=== PATIENT | female | born 1935 | race Caucasian/White ===

== ENCOUNTER → 2016-04-18 | Outpatient (CLI) | payer BC ==
--- NOTE | 2016-04-18 10:23 | DI ---
AP PELVIS and RIGHT HIP, 04/18/2016 9:36 AM: Clinical History: Right hip pain. Previous Exam: 11/26/2015. There is no soft tissue abnormality. 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 There is sclerosis of the inferior portion of the left sacral wing suggestin g a healed fracture. 2 AP views of the right hip show over coverage of the superior and lateral aspec t of the acetabulum. There is a large osteophyte along the lateral and superior margin of the femoral head. There is almost complete obliteration of the joint space around the surface of the femoral hea d. Readin. 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 There ma y be an old fracture of the inferior aspect of the left sacral wing. 2. 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
== END ==
LOC: ORTHO 09:55
PROVIDERS: ATTEND Orthopaedic Surgery
DX: M16.11 Unilateral primary osteoarthritis, right hip (principal); S32.592K Other specified fracture of left pubis, subsequent encounter for fracture with nonunion
CPT/HCPCS: 73502

== ENCOUNTER → 2016-05-09 | Outpatient (CLI) | payer BC ==
--- NOTE | 2016-05-09 10:39 | EKG ---
[address] [address] Measurements Intervals [place] Rate: 86 P: 77 VT: 167 QRS: -1 QRSD: 90 T: 70 QT: 359 QTc: 402 Interpretive Statements SINUS RHYTHM POSSIBLE OLDINFERIOR MYOCARDIAL INFARCTION No previous ECG available for comparison Electronically Signed On 05-09-16 14:51:44 MDT by Raymundo Martin [email or web address]
[2016-05-09 10:46] LABS: HEMATOCRIT 42.1 % (37.0-47.0); HEMOGLOBIN 14.7 g/dL (12.0-16.0); MEAN CORPUSCULAR HEMOGLOBIN 32.1 PG (27-31); MEAN CORPUSCULAR HGB CONC 34.9 g/dL (33-37); MEAN CORPUSCULAR VOLUME 91.9 FL (81-99); MEAN PLATELET VOLUME 9.5 FL (7.4-12.2); RED BLOOD COUNT 4.58 10^6/uL (4.20-5.40)
[2016-05-09 10:50] LABS: BILIRUBIN,URINE NEGATIVE (NEG); COLOR,URINE YELLOW; GLUCOSE, URINE (UA) NEGATIVE (NEG); NITRATE,URINE NEGATIVE (NEG); OCCULT BLOOD,URINE NEGATIVE (NEG); PROTEIN,URINE NEGATIVE (NEG); UROBILINOGEN,URINE 0.2 mg/dL (0.2)
[2016-05-09 10:56] LABS: BACTERIA,URINE RARE; CLARITY,URINE SLIGHTLY CLOUDY (CLEAR); RBC,URINE 0 /hpf; URINE SAMPLE TYPE CLEAN CATCH URINE; WBC,URINE 0
[2016-05-09 11:14] LABS: BUN/CREATININE RATIO 38.33 (6-20); CALCIUM 9.9 mg/dL (8.7-10.7)
== END ==
LOC: LAB 09:49
PROVIDERS: ATTEND Orthopaedic Surgery
DX: Z01.812 Encounter for preprocedural laboratory examination (principal); Z01.810 Encounter for preprocedural cardiovascular examination; M16.11 Unilateral primary osteoarthritis, right hip; I10 Essential (primary) hypertension
CPT/HCPCS: 36415; 80048; 81001; 85027; 86850; 86870; 87641; 93005; 93010

== ENCOUNTER → 2016-05-23 | Outpatient (CLI) | payer BC ==
[2016-05-23 11:12] LABS: BILIRUBIN,URINE NEGATIVE (NEG); COLOR,URINE YELLOW; GLUCOSE, URINE (UA) NEGATIVE (NEG); NITRATE,URINE NEGATIVE (NEG); OCCULT BLOOD,URINE NEGATIVE (NEG); PROTEIN,URINE NEGATIVE (NEG); UROBILINOGEN,URINE 0.2 mg/dL (0.2)
[2016-05-23 11:16] LABS: CLARITY,URINE CLEAR (CLEAR)
[2016-05-23 11:17] LABS: BACTERIA,URINE RARE; RBC,URINE 0 /hpf; URINE SAMPLE TYPE CLEAN CATCH URINE; WBC,URINE 0
== END ==
LOC: LAB 10:08
PROVIDERS: ATTEND Orthopaedic Surgery
DX: M16.11 Unilateral primary osteoarthritis, right hip (principal)
CPT/HCPCS: 36415; 81001; 86850; 86870; 86900; 86901; 86902

== ENCOUNTER 2016-05-24 05:59 | Inpatient (IN) | payer OTHER, BC ==
[2016-05-24] MEDS ORDERED: ceFAZolin Inj 2gm (Premix) 50 ML IV ONE (06:02)
[2016-05-24] MEDS ORDERED: LIDOCAINE W/ SODIUM BICARB 0.5 ML SYR ONE (06:02)
[2016-05-24] MEDS ORDERED: Lactated Ringers 1,000 ML PRIMARY IV ONE (06:02)
[2016-05-24] MEDS ORDERED: Sodium Chloride 0.9% vial 40 ML ONE (06:36)
[2016-05-24] MEDS ORDERED: HEPARIN 10,000 UNIT/1 ML ONE (06:36)
[2016-05-24] MEDS ORDERED: BUPivacaine Liposome/PF (Exparel) Inj 20ml vial INFIL ONE (06:36)
[2016-05-24] MEDS ORDERED: Gentamicin Inj 40 MG/ML VIAL ONE (06:36)
[2016-05-24] MEDS ORDERED: Prochlorperazine Edisylate Inj 10mg/2ml vial IVP PRN (06:40)
[2016-05-24] MEDS ORDERED: NORMAL SALINE 10 ML SYRINGE FLUSH IVP PRN ×2 (06:40→12:50)
[2016-05-24] MEDS ORDERED: ePHEDrine Inj 50 MG/ML AMP IVP PRN (06:40)
[2016-05-24] MEDS ORDERED: ATROPINE SULFATE 0.4 MG/1 ML VIAL IVP PRN (06:40)
[2016-05-24] MEDS ORDERED: ONDANSETRON 4 MG/2 ML VIAL IVP PRN ×2 (06:40→12:50)
[2016-05-24] MEDS ORDERED: Ondansetron ODT Tab 8 MG TAB PO PRN ×2 (06:40→12:50)
[2016-05-24] MEDS ORDERED: Lactated Ringers 1,000 ML PRIMARY IV SCH (06:45)
[2016-05-24] MEDS ORDERED: Sodium Chloride 0.9% 500 ML ONE (06:47)
[2016-05-24] MEDS ORDERED: Sodium Chloride 0.9% 2,000 ML ONE (06:47)
[2016-05-24] MEDS ORDERED: TRANEXAMIC ACID 1,000 MG / 10 ML VIAL ONE (06:48)
[2016-05-24] MEDS ORDERED: Sodium Chloride 0.9% 200 ML IV ONE (06:48)
[2016-05-24] MEDS ORDERED: SUFENTANIL 50 MCG/1 ML ONE (07:00)
[2016-05-24] MEDS ORDERED: MIDAZOLAM 5 MG/1 ML ONE (07:00)
[2016-05-24] MEDS ORDERED: KETAMINE 100 MG/1 ML - 5 ML ONE (07:10)
[2016-05-24] MEDS ORDERED: ROCURONIUM 10 MG/1 ML - 5 ML VIAL IVP ONE (07:13)
[2016-05-24] MEDS ORDERED: Ketorolac Inj 30 MG, Morphine Inj 5 MG, BUPivacaine Inj 0.25% PF 150 MG SPLASH ONE ×3 (07:15)
[2016-05-24] MEDS ORDERED: Hetastarch 6% + NS 500 ML IV ONE (08:24)
[2016-05-24] MEDS ORDERED: Sodium Chloride 0.9% vial 10 ML ONE (09:06)
[2016-05-24] MEDS ORDERED: Sodium Chloride 0.9% 250 ML IV ONE (10:56)
[2016-05-24] MEDS ORDERED: DEXAMETHASONE PF 10 MG/1 ML VIAL ONE (11:04)
[2016-05-24] MEDS: HYDROmorphone 2 MG/1 ML IVP PRN ×5 (11:34→12:39)
[2016-05-24] MEDS ORDERED: MAG HYDROX/AL HYDROX/SIMETH 30 ML SUSP PO PRN (12:50)
[2016-05-24] MEDS ORDERED: CALCIUM CARBONATE 500 MG (TUMS) CHEWABLE TABLET PO PRN (12:50)
[2016-05-24] MEDS ORDERED: MORPHINE SULFATE 2 MG/1 ML IVP PRN (12:50)
[2016-05-24] MEDS ORDERED: BISACODYL 10 MG SUPPOSITORY RECTAL PRN (12:50)
[2016-05-24] MEDS ORDERED: BISACODYL 5 MG TABLET PO PRN (12:50)
[2016-05-24] MEDS ORDERED: Prochlorperazine Tab 10 MG TAB PO PRN (12:50)
[2016-05-24] MEDS ORDERED: IBUPROFEN 400 MG TABLET PO PRN (12:50)
[2016-05-24] MEDS ORDERED: ACETAMINOPHEN 325 MG TABLET PO PRN (12:50)
[2016-05-24] MEDS ORDERED: ASPIRIN 325 MG TABLET PO PRN (12:50)
[2016-05-24] MEDS ORDERED: MORPHINE SULFATE 2 MG/1 ML IV PRN (13:06)
[2016-05-24] MEDS ORDERED: MORPHINE SULFATE 10 MG/1 ML IV PRN (13:06)
[2016-05-24] MEDS ORDERED: MORPHINE SULFATE 4 MG/1 ML IV PRN (13:06)
--- NOTE | 2016-05-24 13:44 | DI ---
AP PELVIS AND RIGHT HIP, 05/24/2016 10:56 AM: Clinical History: Status post right total hip replacement. Osteoarthritis. Previous Exam: 04/18/2016. An AP pelvis with AP and lateral views of the replaced hip are submitted. The patient is status post right total hip replacement. The prosthetic joint articulates normally. A drain tube is in place. The re are fractures of the left superior and inferior pubic rami with delayed or nonunion. Readin. Status post right total hip replacement. The prosthetic joint articulates normally. 2. There are fractures of the left superior and inferior pubic rami with delayed or nonunion.
[2016-05-24] MEDS: Lactated Ringers 1,000 ML PRIMARY IV SCH (14:17)
--- NOTE | 2016-05-24 14:48 | CONSULT ---
Consult Note - Consult Consult Date: 05/24/16 Reason for Consult: PostOp Consulation : Ortho Requesting Physician: Dr. Garcia Primary Care Provider: Jose Nguyen MD - History of Present Illness History of Present Illness: This is a 81 years old female with medical history significant for history of osteoarthritis, hypertension, reflux who came into the hospital to have anterior right hip replacement and was done by Dr. Garcia today, the hospital service were consulted for management of medical issues. Patient is denying new symptoms. There is no pain, no chest pain no shortness of breath no nausea. She said her blood pressure was not controlled prior to surgery so Dr. Nguyen added the amlodipine to her blood pressure and her blood pressure but 2 weeks ago and that seem to 2 control it now better. Past Medical History Medical History: 1. Hypertension. 2. Hyperlipidemia, mostly she said high HDL. 3. Reflux Surgical History: 1. Closed reduction and open reduction right distal radius. 2. Tonsillectomy. 3. Hemorrhoid repair Pertinent Family History: Father had lung cancer, mother had PE Tobacco Use: Never Smoker Substance Use Type: None Alcohol Use: Occasionally Review of Systems - Review of Systems All Systems: Reviewed & No Additional Complaints Except as Stated Medication / Allergies Home Medications: Home Medications Medication Instructions Recorded Confirmed Type Elwin-3 Fatty Acids [Elwin-3] 100 mg PO DAILY cap 12/06/11 05/24/16 History Aspirin 975 mg PO PRN PRN 09/30/14 05/24/16 History Losartan/Hydrochlorothiazide 1 tab ORAL BID #180 tab 11/09/15 05/24/16 Clinic [Losartan-Hctz 100-25 Mg Tab] Omeprazole 1 cap PO QPM PRN #90 cap 11/09/15 05/24/16 Clinic Escitalopram Oxalate 1 tab PO DAILY #90 tab 02/11/16 05/24/16 Clinic Amlodipine Besylate 1 tab PO QPM #30 tab 05/16/16 05/24/16 Clinic Hydrocodone/Acetaminophen 1 tab PO QID #120 tab 05/16/16 05/24/16 Clinic [Hydrocodon-Acetaminophn 10-325] Allergies/Adverse Reactions: Allergies Allergy/AdvReac Type Severity Reaction Status Date / Time clonazepam AdvReac Intermediate INCREASED Verified 05/24/16 13:06 DEPRESSION/FATIGUE lisinopril AdvReac Intermediate COUGH Verified 05/24/16 13:06 metoprolol AdvReac Intermediate BRADYCARDIA Verified 05/24/16 13:06 Exam - Vitals Vital Signs: Vital Signs Temperature 97.4 F Temperature Source Oral Pulse Rate [Pulse Oximeter] 78 Pulse Rate 70 Respiratory Rate 16 Blood Pressure [Right Arm] 146/64 Blood Pressure 135/56 Pulse Ox 99 Oxygen Flow Rate 1 Oxygen Flow Rate 3 Oxygen Delivery Method Room Air Height 5 ft 1 in Weight 143 lb - General General Appearance: POSITIVE: No Acute Distress, Cooperative - Head Head Exam: POSITIVE: Normal Inspection, Atraumatic - Eye Eye Exam: POSITIVE: Normal Appearance - ENT ENT Exam: POSITIVE: Normal Exam - Neck Neck Exam: POSITIVE: Normal Inspection - Respiratory Respiratory Exam: POSITIVE: Clear to Auscultation - Bilaterally - Cardiovascular Cardiovascular Exam: POSITIVE: RRR - GI/Abdominal GI/Abdominal Exam: POSITIVE: Normal Bowel Sounds, Non Tender, Non Distended, Soft - Rectal Rectal Exam: POSITIVE: Deferred - External Exam: POSITIVE: Deferred - Extremities Extremities Exam: POSITIVE: Normal Inspection - Back Back Exam: POSITIVE: Normal Inspection - Neurological Neurological Exam: POSITIVE: Alert, Oriented x 3, No Facial Droop, Speech Intact / Clear - Psychiatric Psychiatric Exam: POSITIVE: Normal Affect - Integumentary Additional Integumentary Exam Details: Dressing applied to right hip Assessment and Plan - Patient Problems (1) Status post right hip replacement Current Visit: Yes Status: Acute Comment: Patient is status post hip replacement pain medication were written by Dr. Garcia, for DVT prophylaxis he put her on aspirin. PT and OT were consulted. (2) Hypertension Current Visit: Yes Status: Acute Comment: Continue previous medication will start tomorrow. (3) History of esophageal reflux Current Visit: Yes Status: Acute Comment: Continue omeprazole
[2016-05-24] MEDS: ceFAZolin Inj 2gm (Premix) 2 GM in Dextrose 1 BAG IV SCH (16:36)
[2016-05-24] MEDS: HYDROcodone-APAP 10 MG-325 MG TABLET PO PRN ×2 (16:36→20:15)
[2016-05-24] MEDS: diphenhydrAMINE 25 MG CAPSULE PO PRN ×2 (20:16→21:34)
[2016-05-24] MEDS: ASPIRIN 325 MG EC TABLET PO SCH (20:16)
[2016-05-24] MEDS: DOCUSATE 100 MG CAPSULE PO SCH (20:16)
[2016-05-24] MEDS ORDERED: HYDROCHLOROTHIAZIDE 25 MG TABLET PO SCH (21:00)
[2016-05-24] MEDS ORDERED: LOSARTAN 50 MG TABLET PO SCH (21:00)
[2016-05-24] MEDS ORDERED: AmLODIPine Tab 2.5 MG TABLET PO SCH (21:00)
[2016-05-25] MEDS: Lactated Ringers 1,000 ML PRIMARY IV SCH ×2 (00:35→09:35)
[2016-05-25] MEDS: ceFAZolin Inj 2gm (Premix) 2 GM in Dextrose 1 BAG IV SCH (00:36)
[2016-05-25] MEDS: HYDROcodone-APAP 10 MG-325 MG TABLET PO PRN ×5 (01:46→23:54)
[2016-05-25] MEDS: diphenhydrAMINE 25 MG CAPSULE PO PRN (01:47)
[2016-05-25 06:44] LABS: HEMATOCRIT 26.1 % (37.0-47.0); HEMOGLOBIN 8.6 g/dL (12.0-16.0); MEAN CORPUSCULAR HEMOGLOBIN 31.4 PG (27-31); MEAN CORPUSCULAR VOLUME 95.3 FL (81-99); MEAN PLATELET VOLUME 9.5 FL (7.4-12.2); RED BLOOD COUNT 2.74 10^6/uL (4.20-5.40)
[2016-05-25 06:55] LABS: BUN/CREATININE RATIO 18.33 (6-20); CALCIUM 8.2 mg/dL (8.7-10.7)
[2016-05-25] MEDS: OMEPRAZOLE 20 MG CAPSULE PO SCH (07:05)
[2016-05-25] MEDS: DOCUSATE 100 MG CAPSULE PO SCH ×2 (08:46→20:26)
[2016-05-25] MEDS: ASPIRIN 325 MG EC TABLET PO SCH ×2 (08:49→20:26)
[2016-05-25] MEDS ORDERED: HYDROCHLOROTHIAZIDE 25 MG TABLET PO SCH (09:00)
[2016-05-25] MEDS ORDERED: LOSARTAN 50 MG TABLET PO SCH (09:00)
[2016-05-25] MEDS ORDERED: ESCITALOPRAM 10 MG TABLET PO SCH (09:00)
--- NOTE | 2016-05-25 09:16 | ORTHO.PROG ---
Last Taken Vital Signs: Vital Signs - Last Taken Temperature 98.2 F 05/25/16 06:50 Pulse Rate 73 05/25/16 06:50 Respiratory Rate 16 05/25/16 06:50 Blood Pressure 120/46 05/25/16 06:50 Pulse Ox 92 05/25/16 06:50 Subjective: Patient doing well she walks with a of surgery to the [facility] back status post right total hip Objective: Chloride good motor and sensory to the lower extremity dressing clean and dry drain with minimal output Assessment: Right anterior total hip replacement doing well Plan: Patient will continue with the therapy postoperative course we will see her while she is also. She will have evaluation by the hospitalist and care for medical issues. See her back sooner for problems.
--- NOTE | 2016-05-25 09:18 | CRNA.PROGR ---
Anesthesia Note Anesthesia Progress Note: Lying in bed cheerful and states she is comfortable. Hemovac out. Massey catheter out. Ambulating. Pleased with care. Confusion of immediately post op yesterday cleared by yesterday evening. She realized she was confused. Laboratory Results 05/25/16 Range/Units 06:33 WBC 12.96 H (4.8-10.8) 10^3/uL RBC 2.74 L (4.20-5.40) 10^6/uL Hgb 8.6 L (12.0-16.0) g/dL Hct 26.1 L (37.0-47.0) % MCV 95.3 (81-99) FL MCH 31.4 H (27-31) PG MCHC 33.0 (33-37) g/dL RDW Std Deviation 46.3 (39-50) fL RDW Coeff of Jonas 13.9 (11.5-14.5) % Plt Count 327 (140-350) 10*3/uL MPV 9.5 (7.4-12.2) FL Sodium 131 L (135-145) meq/L Potassium 3.6 L (3.8-5.2) meq/L Chloride 99 (98-112) meq/L Carbon Dioxide 28 (23-33) meq/L Anion Gap 4 L (5-20) BUN 11 (7-22) mg/dL Creatinine 0.6 (0.50-1.20) mg/dL Estimated GFR (>60 ml/min/1.73m(2)) BUN/Creatinine Ratio 18.33 (6-20) Glucose 113 H (78-110) mg/dL Calculated Osmolality 271.0 (267-292) mOsm/kg Calcium 8.2 L (8.7-10.7) mg/dL No apparent difficulties with anesthesia. Lola Lazo MS, TR[employer] SHOW MANAGER
--- NOTE | 2016-05-25 09:46 | ORTHO.PROG ---
Last Taken Vital Signs: Vital Signs - Last Taken Temperature 98.2 F 05/25/16 06:50 Pulse Rate 73 05/25/16 06:50 Respiratory Rate 16 05/25/16 06:50 Blood Pressure 120/46 05/25/16 06:50 Pulse Ox 92 05/25/16 06:50 Subjective: Status post right total hip replacement doing well Objective: Examination showed the drain only put out 10 mL last PM, deep drain. Motor and sensory exam is intact. Dressing is clean and dry.PREVENA dressing is in place with suction applied. Intake and Output - 8hrs 05/24/16 05/24/16 05/25/16 05/25/16 13:59 21:59 05:59 13:59 Intake: IV 2725 Intake Oral Amount 700 1200 220 OrthoPat 50 Output: Output, Drainage Amount 10 Output, Urinary Catheter 3250 750 Amount Output, Urine Amount 1250 Output, Estimated Blood 500 Loss Amount Output, Other Amount 140 Other: Percent Meal Consumed 100% 100% Weight 64.864 kg Weight Measurement Method Standing Scale Laboratory Results 05/25/16 Range/Units 06:33 WBC 12.96 H (4.8-10.8) 10^3/uL RBC 2.74 L (4.20-5.40) 10^6/uL Hgb 8.6 L (12.0-16.0) g/dL Hct 26.1 L (37.0-47.0) % MCV 95.3 (81-99) FL MCH 31.4 H (27-31) PG MCHC 33.0 (33-37) g/dL RDW Std Deviation 46.3 (39-50) fL RDW Coeff of Jonas 13.9 (11.5-14.5) % Plt Count 327 (140-350) 10*3/uL MPV 9.5 (7.4-12.2) FL Sodium 131 L (135-145) meq/L Potassium 3.6 L (3.8-5.2) meq/L Chloride 99 (98-112) meq/L Carbon Dioxide 28 (23-33) meq/L Anion Gap 4 L (5-20) BUN 11 (7-22) mg/dL Creatinine 0.6 (0.50-1.20) mg/dL Estimated GFR (>60 ml/min/1.73m(2)) BUN/Creatinine Ratio 18.33 (6-20) Glucose 113 H (78-110) mg/dL Calculated Osmolality 271.0 (267-292) mOsm/kg Calcium 8.2 L (8.7-10.7) mg/dL Assessment: Right total hip replacement Anemia Plan: Patient doing well this morning she will work with therapy today and I think probably would be a candidate to go home when she is able to mobilize a [place] socket in and out of bed. Patient has no family members and will be available until Monday. Patient's family is coming from [place]. Continue current plan. Check hemoglobin and hematocrit in the a.m.
--- NOTE | 2016-05-25 11:18 | PDOC(PROG) ---
Date and Time of Service: 05/25/2016 11:16 AM Interval History: Subjective Patient feels better, she did well with physical therapy per my discussion with them. Her pain seemed to be controlled with the current pain medication, mainly she said is actually her back that is causing the pain. No nausea or vomiting Objective : Data - Labs CBC and BMP: 05/25/16 06:33 05/25/16 06:33 Labs - Last 24 Hours: Laboratory Results 05/25/16 Range/Units 06:33 WBC 12.96 H (4.8-10.8) 10^3/uL RBC 2.74 L (4.20-5.40) 10^6/uL Hgb 8.6 L (12.0-16.0) g/dL Hct 26.1 L (37.0-47.0) % MCV 95.3 (81-99) FL MCH 31.4 H (27-31) PG MCHC 33.0 (33-37) g/dL RDW Std Deviation 46.3 (39-50) fL RDW Coeff of Jonas 13.9 (11.5-14.5) % Plt Count 327 (140-350) 10*3/uL MPV 9.5 (7.4-12.2) FL Sodium 131 L (135-145) meq/L Potassium 3.6 L (3.8-5.2) meq/L Chloride 99 (98-112) meq/L Carbon Dioxide 28 (23-33) meq/L Anion Gap 4 L (5-20) BUN 11 (7-22) mg/dL Creatinine 0.6 (0.50-1.20) mg/dL Estimated GFR (>60 ml/min/1.73m(2)) BUN/Creatinine Ratio 18.33 (6-20) Glucose 113 H (78-110) mg/dL Calculated Osmolality 271.0 (267-292) mOsm/kg Calcium 8.2 L (8.7-10.7) mg/dL Objective : Exam - General General Appearance: No Acute Distress, Cooperative - Head Head Exam: Normal Inspection - Eye Eye Exam: Normal Appearance - ENT ENT Exam: Normal Exam - Neck Neck Exam: Normal Inspection - Respiratory Respiratory Exam: Clear to Auscultation - Bilaterally - Cardiovascular Cardiovascular Exam: RRR - GI/Abdominal GI/Abdominal Exam: Normal Bowel Sounds, Non Tender, Non Distended, Soft - Rectal Rectal Exam: Deferred - External Exam: Deferred - Extremities Extremities Exam: Normal Inspection - Back Back Exam: Normal Inspection - Neurological Neurological Exam: Alert, Oriented x 3 - Psychiatric Psychiatric Exam: Normal Affect Assessment and Plan - Patient Problems (1) Status post right hip replacement Current Visit: Yes Status: Acute Comment: Continue PT and OT. She said her family will are coming from [place] on Monday so probably looking at discharge if things continued to go well to be on Monday. For DVT prophylaxis she is on aspirin. (2) Hypertension Current Visit: Yes Status: Acute Comment: Blood pressure is borderline, I think will change her medication to losartan 100 mg once a days instead of twice a day, hydrochlorothiazide to 25 mg a day instead of twice a day and will hold the [employer] tonight. If her blood pressure starts to go up tomorrow then will put her back on her previous dosage (3) History of esophageal reflux Current Visit: Yes Status: Acute Comment: Same medications she said she takes Tums usually two a day so will put her on scheduled doses. Photo / Body Diagrams - Uploaded Photos Uploaded Photos:
--- NOTE | 2016-05-25 12:49 | PTI REPORT ---
Thank you for the referral of Shruthi Dyer. She was seen on 05/24/16 for an inpatient evaluation secondary to a right anterior total hip arthroplasty. SUBJECTIVE: The patient is a 81-year-old female. The patient currently lives here in [place]. The patient does live alone at home but has good friends and a sister close by. She states she has three steps to get into her home. She hasn't used a walker or a cane too much in the past but does have a walker at home which she will have her friends bring by for later use. PAST MEDICAL HISTORY: Past medical history can be found in the patient's medical record. OBJECTIVE FINDINGS: General observations: The patient was seen in he room, post operatively today. Her nurse on duty states she is doing well. The patient was alert and oriented and cooperative throughout. She had a lot of good questions about do's and don' ts. Pain: The patient's pain was under control. Bed mobility: The patient did require assist of one to come from supine to sit. Transfers: The patient did require assist of one and a walker to transfer from sit to stand. She was able to stand for approximately several minutes and then was getting a little lightheaded and was placed back into her bed. ASSESSMENT: Problem List: Pain in the right hip Decreased passive and active range of motion in the right hip Decreased strength in the right hip Decreased ability to perform activities of daily living Decreased ability to perform transfers Short-Term Goals: To be met by discharge from inpatient: Patient will be able to transfer from bed to stand independently. Patient will be able to ambulate approximately 100 feet with walker, weight- bearing as tolerated. Patient will be able to ascend and descend five stairs with walker, weight- bearing as tolerated. Patient will be instructed in hip precautions. Long-Term Goals: To be met following discharge from inpatient: Patient will be seen by outpatient physical therapy. TREATMENT PLAN: Patient will be seen B.I.D during the week and one time per day over the weekend as an inpatient for pain relief modalities as needed, transfer training , ambulation, and range of motion and strengthening activities. INITIAL TREATMENT: Treatment today consisted of the initial evaluation activities only. NAPOLEON
[2016-05-26] MEDS: HYDROcodone-APAP 10 MG-325 MG TABLET PO PRN ×5 (04:30→20:38)
[2016-05-26] MEDS: OMEPRAZOLE 20 MG CAPSULE PO SCH (06:54)
--- NOTE | 2016-05-26 07:52 | ORTHO.PROG ---
Last Taken Vital Signs: Vital Signs - Last Taken Temperature 97.4 F 05/26/16 04:35 Pulse Rate 79 05/26/16 04:35 Respiratory Rate 20 05/26/16 04:35 Blood Pressure 136/67 05/26/16 04:35 Pulse Ox 95 05/26/16 04:58 Subjective: Patient with right hip replacement doing well notes her pain is well-controlled Objective: Dressing is clean and dry no active bleeding motor and sensory exam in the lower extremity is good, pulses and brisk refill normal, no excessive swelling. Intake and Output - 8hrs 05/25/16 05/25/16 05/26/16 05/26/16 13:59 21:59 05:59 13:59 Intake: Intake Oral Amount 420 950 450 Output: Output, Drainage Amount 10 10 Right Hip 10 10 Output, Urinary Catheter 750 Amount Output, Urine Amount 550 300 Other: Percent Meal Consumed 100% 100% Number of Voids 1 Weight 66.406 kg Weight Measurement Method Standing Scale Vital Signs (24 hrs) Temp Pulse Resp BP BP Pulse Ox 05/26/16 04:58 95 05/26/16 04:35 97.4 F 79 20 136/67 95 05/26/16 00:09 98.7 F 88 20 142/52 93 05/25/16 20:29 97.3 F 76 20 111/44 96 05/25/16 19:00 76 20 05/25/16 16:52 98 F 72 16 105/45 95 05/25/16 14:46 121/47 05/25/16 12:58 98.4 F 77 16 100/38 96 Assessment: Right anterior total hip replacement doing well Anemiaawaiting labs they were not drawn this morning for some reason go the orders states a series of labs for 3 days in a row day after surgery today and tomorrow Plan: Await lab results and continue with physical therapy and occupational therapy. Pain control Deep vein thromboses prophylaxis
[2016-05-26 08:26] LABS: HEMATOCRIT 25.8 % (37.0-47.0); HEMOGLOBIN 8.4 g/dL (12.0-16.0); MEAN CORPUSCULAR HEMOGLOBIN 31.5 PG (27-31); MEAN CORPUSCULAR HGB CONC 32.6 g/dL (33-37); MEAN CORPUSCULAR VOLUME 96.6 FL (81-99); MEAN PLATELET VOLUME 10.1 FL (7.4-12.2); RED BLOOD COUNT 2.67 10^6/uL (4.20-5.40)
[2016-05-26 08:34] LABS: BUN/CREATININE RATIO 21.42 (6-20); CALCIUM 8.1 mg/dL (8.7-10.7)
[2016-05-26] MEDS ORDERED: HYDROCHLOROTHIAZIDE 25 MG TABLET PO SCH (09:00)
[2016-05-26] MEDS: LOSARTAN 50 MG TABLET PO SCH (09:15)
[2016-05-26] MEDS: ASPIRIN 325 MG EC TABLET PO SCH ×2 (09:17→20:39)
[2016-05-26] MEDS: ESCITALOPRAM 10 MG TABLET PO SCH (09:18)
[2016-05-26] MEDS: DOCUSATE 100 MG CAPSULE PO SCH ×2 (09:18→20:39)
[2016-05-26] MEDS: CALCIUM CARBONATE 500 MG (TUMS) CHEWABLE TABLET PO SCH (09:20)
--- NOTE | 2016-05-26 10:57 | PDOC(PROG) ---
Interval History: Doing well tolerating physical therapy okay she is doing great she regrets not doing the operation sooner she did not want to take the dose of any of blood pressure medication that was prescribed to her and I would agree Objective : Data - Labs CBC and BMP: 05/26/16 08:23 05/26/16 08:23 Labs - Last 24 Hours: Laboratory Results 05/26/16 Range/Units 08:23 WBC 9.61 (4.8-10.8) 10^3/uL RBC 2.67 L (4.20-5.40) 10^6/uL Hgb 8.4 L (12.0-16.0) g/dL Hct 25.8 L (37.0-47.0) % MCV 96.6 (81-99) FL MCH 31.5 H (27-31) PG MCHC 32.6 L (33-37) g/dL RDW Std Deviation 48.8 (39-50) fL RDW Coeff of Jonas 14.4 (11.5-14.5) % Plt Count 305 (140-350) 10*3/uL MPV 10.1 (7.4-12.2) FL Sodium 131 L (135-145) meq/L Potassium 3.4 L (3.8-5.2) meq/L Chloride 96 L (98-112) meq/L Carbon Dioxide 27 (23-33) meq/L Anion Gap 8 (5-20) BUN 15 (7-22) mg/dL Creatinine 0.7 (0.50-1.20) mg/dL Estimated GFR (>60 ml/min/1.73m(2)) BUN/Creatinine Ratio 21.42 H (6-20) Glucose 119 H (78-110) mg/dL Calculated Osmolality 273.0 (267-292) mOsm/kg Calcium 8.1 L (8.7-10.7) mg/dL Objective : Exam - General General Appearance: Cooperative - Eye Eye Exam: Normal Appearance - Neck Neck Exam: Normal Inspection - Respiratory Respiratory Exam: Clear to Auscultation - Bilaterally, Breathing Non Labored, Normal To Percussion - Cardiovascular Cardiovascular Exam: RRR, No Murmur, No Clicks, No Gallops - GI/Abdominal GI/Abdominal Exam: Non Tender, Non Distended, Soft Assessment and Plan - Patient Problems (1) Hypertension Current Visit: Yes Status: Acute Comment: She is anemic and therefore her blood pressures on the low side we cut in half her usual home medication for blood pressure we'll continue to monitor her CBC make sure she doesn't drop any further she will she took 50 of losartan today instead of 100 there was prescribed and she is usually on 200 a day (2) Status post right hip replacement Current Visit: Yes Status: Acute Comment: Further orthopedic surgery on aspirin for prophylaxis (3) Hypokalemia Current Visit: Yes Status: Acute Comment: Replace with 40 twice a day check magnesium (4) Postoperative anemia Current Visit: Yes Status: Acute Photo / Body Diagrams - Uploaded Photos Uploaded Photos:
[2016-05-26] MEDS ORDERED: CALCIUM CARBONATE 500 MG (TUMS) CHEWABLE TABLET PO SCH (11:06)
--- NOTE | 2016-05-26 11:47 | PT AM DAY ---
Diagnosis : Right Total Hip Arthroplasty AM - Physical Therapy S: The patient reports her hip is doing very well and that she is most upset that she has gotten so out of shape and wants to do as much as possible. She also requested to just start doing exercises as she does not like the heat. O: The patient performed the following therapeutic exercises and functional activities including ambulating all the way downstairs to therapy following participation with occupational therapy. She participated in sit to stands, box step ups on the #2 box, and standing heel raises, new step x5 minutes. She then was able to ambulate with her front wheeled walker, gait belt, and contact guard assist from the therapy gym back up to her room. A: The patient required verbal cues for safety of ambulating within her walker. Her incision was not inspected this morning. P: Continue seeing patient BID during the week and one time per day over the weekend for transfers, ambulation, and range of motion/strengthening exercises. NAPOLEON
--- NOTE | 2016-05-26 11:51 | PT PM DAY ---
Diagnosis : Right Total Hip Arthroplasty PM - Physical Therapy S: The patient states she did visit with Dr. Garcia about her progress. She is currently working on her blood pressure medications as they are a limiting factor of going home at this time. O: The patient ambulated all the way to the department. She participated in her therapy program here. She demonstrated the ability to go up and down four or five stairs with stand by assist for safety and a walker. She then ambulated all the way back up to her room. A: The patient is complaining of minimal pain and completed all the tasks that were asked of her today. The patient is currently cleared and able to go home based on her rehabilitative goals once her other medical issues are addressed. P: Continue seeing patient BID during the week and one time per day over the weekend for transfers, ambulation, and range of motion/strengthening exercises. NAPOLEON
[2016-05-26] MEDS ORDERED: Magnesium Sulfate 2gm (Premix) 2 GM in Premix 1 BAG IV ONE (16:03)
--- NOTE | 2016-05-26 16:55 | PT.PROG ---
Progress Note Progress Note: S. Patient stated that she is feeling good. She reports she is a little sore however not bad enough for pain meds. O. Patient ambulated 175 feet to the therapy gym where she had heat to her hip then performed exercises in the form of; heel slides, quad sets, ankle pumps, short arc quads, seated long arc quads, resisted knee flexion, sit to stands all x 10, Box step ups #2 x 10. Nu-step x 5 minutes then ambulated 175 feet back to her room where she was left in bed with alarm and call light. A. Patient tolerated therapy well this afternoon. She continues to make gains with strengthening and mobility. P. Patient has met all goals at this time however will continue POC until Discharge.
--- NOTE | 2016-05-26 17:13 | PT.PROG ---
Progress Note Progress Note: S. Patient stated that she is feeling good this morning. O. Patient ambulated 175 feet to the therapy gym where she had heat to her hip then performed exercises in the form of; heel slides, quad sets, ankle pumps, short arc quads, seated long arc quads, resisted knee flexion, sit to stands all x 10, Box step ups #2 x 10. Nu-step x 10 minutes then ambulated 175 feet back to her room where she was left in chair with alarm and call light. A. Patient tolerated therapy well this morning, she continues to make gains with strengthening and endurance. Patient is able to perform all tasks asked of her. she was sore after treatment this morning. P. Patient has met all goals at this time, however will continue POC until Discharge.
[2016-05-26] MEDS: POTASSIUM CHLORIDE 20 MEQ TAB PO SCH (20:38)
[2016-05-27] MEDS: HYDROcodone-APAP 10 MG-325 MG TABLET PO PRN ×5 (00:19→19:52)
[2016-05-27 05:00] LABS: HEMATOCRIT 24.5 % (37.0-47.0); HEMOGLOBIN 8.2 g/dL (12.0-16.0); MEAN CORPUSCULAR HEMOGLOBIN 32.2 PG (27-31); MEAN CORPUSCULAR HGB CONC 33.5 g/dL (33-37); MEAN CORPUSCULAR VOLUME 96.1 FL (81-99); MEAN PLATELET VOLUME 10.9 FL (7.4-12.2); RED BLOOD COUNT 2.55 10^6/uL (4.20-5.40)
[2016-05-27 05:13] LABS: CALCIUM 7.8 mg/dL (8.7-10.7)
--- NOTE | 2016-05-27 05:58 | PDOC(PROG) ---
Objective : Data - Labs CBC and BMP: 05/27/16 04:11 05/27/16 04:11 Labs - Last 24 Hours: Laboratory Results 05/26/16 05/26/16 05/27/16 Range/Units 08:05 08:23 04:11 WBC 9.61 9.18 (4.8-10.8) 10^3/uL RBC 2.67 L 2.55 L (4.20-5.40) 10^6/uL Hgb 8.4 L 8.2 L (12.0-16.0) g/dL Hct 25.8 L 24.5 L (37.0-47.0) % MCV 96.6 96.1 (81-99) FL MCH 31.5 H 32.2 H (27-31) PG MCHC 32.6 L 33.5 (33-37) g/dL RDW Std Deviation 48.8 47.6 (39-50) fL RDW Coeff of Jonas 14.4 14.3 (11.5-14.5) % Plt Count 305 313 (140-350) 10*3/uL MPV 10.1 10.9 (7.4-12.2) FL Sodium 131 L 131 L (135-145) meq/L Potassium 3.4 L 3.7 L (3.8-5.2) meq/L Chloride 96 L 100 (98-112) meq/L Carbon Dioxide 27 28 (23-33) meq/L Anion Gap 8 3 L (5-20) BUN 15 13 (7-22) mg/dL Creatinine 0.7 0.5 (0.50-1.20) mg/dL Estimated GFR (>60 ml/min/1.73m(2)) BUN/Creatinine Ratio 21.42 H 26.00 H (6-20) Glucose 119 H 83 (78-110) mg/dL Calculated Osmolality 273.0 270.0 (267-292) mOsm/kg Calcium 8.1 L 7.8 L (8.7-10.7) mg/dL Magnesium 1.7 (1.6-2.4) mg/dL Assessment and Plan - Patient Problems (1) Status post right hip replacement Current Visit: Yes Status: Acute (2) Postoperative anemia Current Visit: Yes Status: Acute Comment: bp ok add iron replacement (3) Hypertension Current Visit: Yes Status: Acute Comment: cont valsartan 100 stop hctz (4) Hypokalemia Current Visit: Yes Status: Acute Comment: cont replacement (5) Hyponatremia Current Visit: Yes Status: Acute Comment: stop hctz Photo / Body Diagrams - Uploaded Photos Uploaded Photos:
[2016-05-27] MEDS: OMEPRAZOLE 20 MG CAPSULE PO SCH (07:32)
[2016-05-27] MEDS: POTASSIUM CHLORIDE 20 MEQ TAB PO SCH ×2 (08:15→20:58)
[2016-05-27] MEDS: DOCUSATE 100 MG CAPSULE PO SCH ×2 (08:15→20:58)
[2016-05-27] MEDS: ASPIRIN 325 MG EC TABLET PO SCH ×2 (08:15→20:58)
[2016-05-27] MEDS: FERROUS SULFATE 325 MG TABLET PO SCH ×2 (08:15→20:58)
[2016-05-27] MEDS: ESCITALOPRAM 10 MG TABLET PO SCH (08:15)
[2016-05-27] MEDS: LOSARTAN 50 MG TABLET PO SCH (08:16)
[2016-05-27] MEDS: CALCIUM CARBONATE 500 MG (TUMS) CHEWABLE TABLET PO SCH (08:16)
--- NOTE | 2016-05-27 11:52 | PT.PROG ---
Progress Note Progress Note: S. Patient stated that she is feeling good this morning. O. Patient ambulated 175 feet to the therapy gym where she had heat to her hip then performed exercises in the form of; heel slides, quad sets, ankle pumps, short arc quads, seated long arc quads, resisted knee flexion, sit to stands all x 10, Box step ups #2 x 10. Nu-step x 10 minutes then ambulated 175 feet back to her room where she was left in bed with alarm and call light. A. Patient tolerated therapy well this morning She continues to make gains with strengthening and mobility. P. Patient has met all goals at this time however will continue POC until Discharge.
--- NOTE | 2016-05-27 15:21 | PT.PROG ---
Progress Note Progress Note: S. Patient stated that she is feeling good. She reports that she gets a little dizzy when she transfers. O. Patient ambulated 175 feet to the therapy gym where she had heat to her hip x 20 minutes, then performed exercises in the form of; heel slides, quad sets, ankle pumps, glute squeezes, short arc quads, hip abduction/adduction, seated long arc quads, marches, heel toe raises all x 15. nu-step x 10 minutes, Patient ambulated 175 feet back to her room where she was left in her chair with alarm and call light. A. Patient tolerated exercises very well, she continues to make gains with strength and mobility. P. Patient has met goals however will continue POC until discharge.
--- NOTE | 2016-05-27 16:16 | ORTHO.PROG ---
Last Taken Vital Signs: Vital Signs - Last Taken Temperature 97.5 F 05/27/16 13:00 Pulse Rate 73 05/27/16 13:00 Respiratory Rate 20 05/27/16 13:00 Blood Pressure 114/39 05/27/16 13:00 Pulse Ox 93 05/27/16 13:00 Subjective: Patient doing well with minimal right hip pain. Patient is using quite a bit of narcotic medication orally and did not know that she should be cutting back on this Objective: PREVINA a dressing in place no added drainage no evidence of infection. Motor and sensory exam is nonfocal with good pulses and brisk refill no calf, popliteal, adductor hiatus or thigh pain. Laboratory Results 05/27/16 Range/Units 04:11 WBC 9.18 (4.8-10.8) 10^3/uL RBC 2.55 L (4.20-5.40) 10^6/uL Hgb 8.2 L (12.0-16.0) g/dL Hct 24.5 L (37.0-47.0) % MCV 96.1 (81-99) FL MCH 32.2 H (27-31) PG MCHC 33.5 (33-37) g/dL RDW Std Deviation 47.6 (39-50) fL RDW Coeff of Jonas 14.3 (11.5-14.5) % Plt Count 313 (140-350) 10*3/uL MPV 10.9 (7.4-12.2) FL Sodium 131 L (135-145) meq/L Potassium 3.7 L (3.8-5.2) meq/L Chloride 100 (98-112) meq/L Carbon Dioxide 28 (23-33) meq/L Anion Gap 3 L (5-20) BUN 13 (7-22) mg/dL Creatinine 0.5 (0.50-1.20) mg/dL Estimated GFR (>60 ml/min/1.73m(2)) BUN/Creatinine Ratio 26.00 H (6-20) Glucose 83 (78-110) mg/dL Calculated Osmolality 270.0 (267-292) mOsm/kg Calcium 7.8 L (8.7-10.7) mg/dL Magnesium 2.3 (1.6-2.4) mg/dL Vital Signs (24 hrs) Temp Pulse Resp BP Pulse Ox 05/27/16 13:00 97.5 F 73 20 114/39 93 05/27/16 07:42 97.4 F 75 20 132/51 95 05/27/16 05:16 95 05/27/16 04:41 98.2 F 85 18 144/49 92 05/27/16 01:00 97.6 F 72 16 130/55 95 05/26/16 21:00 98.0 F 76 16 121/52 96 05/26/16 17:00 98.0 F 72 18 101/39 92 Assessment: Right total hip replacement Anemia Plan: We will continue with physical therapy and occupational therapy. Patient would like to try to transition home today however I think with some of her changes in medication for high blood pressure we may wish to watch her for another day. We'll discuss this with the hospitalist and come up with the plan. I did discuss utilization of pain medication and I would like to see decrease use of this. Continue with DVT to prophylaxis with aspirin and pneumatics
[2016-05-28] MEDS: HYDROcodone-APAP 10 MG-325 MG TABLET PO PRN ×2 (01:04→06:12)
[2016-05-28 05:51] LABS: BASOPHILS # (AUTO) 0.02 10*3/UL; BASOPHILS % (AUTO) 0.2 % (0-1); EOSINOPHILS # (AUTO) 0.21 10*3/UL; EOSINOPHILS % (AUTO) 2.3 % (0-8); HEMATOCRIT 27.3 % (37.0-47.0); HEMOGLOBIN 8.7 g/dL (12.0-16.0); LYMPHOCYTES # (AUTO) 2.06 10*3/uL; MEAN CORPUSCULAR HEMOGLOBIN 31.1 PG (27-31); MEAN CORPUSCULAR HGB CONC 31.9 g/dL (33-37); MEAN CORPUSCULAR VOLUME 97.5 FL (81-99); MEAN PLATELET VOLUME 10.6 FL (7.4-12.2); MONOCYTES # (AUTO) 0.74 10*3/UL (0.3-0.8); NEUTROPHILS # (AUTO) 6.17 10*3/UL
[2016-05-28 05:56] LABS: PLATELET MORPHOLOGY COMMENT NORMAL MORPHOLOGY (NORM); RBC MORPHOLOGY COMMENT NORMAL MORPHOLOGY (NORM); WBC MORPHOLOGY COMMENT NORMAL MORPHOLOGY (NORM)
[2016-05-28 06:00] LABS: SERUM ALBUMIN 3.2 g/dL (3.5-4.8)
[2016-05-28 07:18] VITALS: RESP 18
[2016-05-28] MEDS: ASPIRIN 325 MG EC TABLET PO SCH (09:08)
[2016-05-28] MEDS: ESCITALOPRAM 10 MG TABLET PO SCH (09:08)
[2016-05-28] MEDS: LOSARTAN 50 MG TABLET PO SCH (09:09)
[2016-05-28] MEDS: CALCIUM CARBONATE 500 MG (TUMS) CHEWABLE TABLET PO SCH (09:09)
[2016-05-28] MEDS: DOCUSATE 100 MG CAPSULE PO SCH (09:10)
[2016-05-28] MEDS: FERROUS SULFATE 325 MG TABLET PO SCH (09:10)
[2016-05-28] MEDS: POTASSIUM CHLORIDE 20 MEQ TAB PO SCH (09:10)
[2016-05-28] MEDS: OMEPRAZOLE 20 MG CAPSULE PO SCH (09:10)
--- NOTE | 2016-05-28 09:28 | ORTHO.PROG ---
Last Taken Vital Signs: Vital Signs - Last Taken Temperature 97.1 F 05/28/16 07:16 Pulse Rate 72 05/28/16 07:16 Respiratory Rate 18 05/28/16 07:16 Blood Pressure 114/48 05/28/16 07:16 Pulse Ox 96 05/28/16 07:16 Subjective: Patient feels very good this morning he would like to go home, her family is coming from [place] and she has 3 friends who live near her who can attend to her until her family arrives tonight Objective: Examination shows that the patient was quite mobile she easily gets up and out of her chair and walks with a walker full weightbearing as tolerated she can also sit very comfortably transfer to move about easily. Her dressing is clean and dry it is still in place no active drainage motor and sensory exam is nonfocal. Vital Signs (24 hrs) Temp Pulse Pulse Resp BP BP Pulse Ox 05/28/16 07:16 97.1 F 72 18 114/48 96 05/28/16 05:38 95 05/28/16 04:42 98.6 F 79 16 130/52 94 05/28/16 00:05 97.8 F 76 12 119/49 96 05/27/16 20:37 98.0 F 79 24 109/56 95 05/27/16 19:00 80 05/27/16 17:00 97.5 F 79 20 112/48 94 05/27/16 13:00 97.5 F 73 20 114/39 93 Laboratory Results 05/28/16 Range/Units 04:40 WBC 9.22 (4.8-10.8) 10^3/uL RBC 2.80 L (4.20-5.40) 10^6/uL Hgb 8.7 L (12.0-16.0) g/dL Hct 27.3 L (37.0-47.0) % MCV 97.5 (81-99) FL MCH 31.1 H (27-31) PG MCHC 31.9 L (33-37) g/dL RDW Std Deviation 48.7 (39-50) fL RDW Coeff of Jonas 14.4 (11.5-14.5) % Plt Count 462 H (140-350) 10*3/uL MPV 10.6 (7.4-12.2) FL Immature Gran % (Auto) 0.2 (0-5) % Neut % (Auto) 67.0 (50-80) % Lymph % (Auto) 22.3 (10-50) % Taliaferro % (Auto) 8.0 (5-15) % Eos % (Auto) 2.3 (0-8) % Baso % (Auto) 0.2 (0-1) % Immature Gran # (Auto) 0.02 10*3/UL Neut # (Auto) 6.17 10*3/UL Lymph # (Auto) 2.06 10*3/uL Tal[place]ferro # (Auto) 0.74 (0.3-0.8) 10*3/UL Eos # (Auto) 0.21 10*3/UL Baso # (Auto) 0.02 10*3/UL WBC Morphology Comment Normal morphology (NORM) Plt Morphology Comment Normal morphology (NORM) RBC Morph Comment Normal morphology (NORM) Sodium 133 L (135-145) meq/L Potassium 4.2 (3.8-5.2) meq/L Chloride 100 (98-112) meq/L Carbon Dioxide 26 (23-33) meq/L Anion Gap 7 (5-20) BUN 11 (7-22) mg/dL Creatinine 0.5 (0.50-1.20) mg/dL Estimated GFR (>60 ml/min/1.73m(2)) BUN/Creatinine Ratio 22.00 H (6-20) Glucose 84 (78-110) mg/dL Calculated Osmolality 273.0 (267-292) mOsm/kg Calcium 8.0 L (8.7-10.7) mg/dL Total Bilirubin 0.6 (0.3-1.2) mg/dL AST 59 H (8-39) IU/L ALT 16 (9-52) IU/L Alkaline Phosphatase 56 (38-126) IU/L Total Protein 6.3 (6.1-8.0) g/dL Albumin 3.2 L (3.5-4.8) g/dL Globulin 3.1 (2.50-4.10) g/dL Albumin/Globulin Ratio 1.00 L (1.3-2.0) mg/g Assessment: Right total hip replacement doing well Anemia stabilized Plan: At the current time patient is doing very well she most likely will be discharged home today. She has a follow-up Arty scheduled with me. I have given the patient a sterile Silverlon dressing that she will apply once the battery runs out on the suction dressing that she has of the current time. See her back sooner for any issues.
--- NOTE | 2016-05-28 11:02 | PT.PROG ---
Progress Note Progress Note: S: pt. states she is ready to go home today. Has no new c/o today. O: Treatment consisted of ambulating to and from room to PT room with FWW and CGA. She then performed nu-step x 8 minutes, box step ups with #3 box x 5, sit to stands x 5, R LE 10x each: qs, hs, saq, hip abd/add, laq. She was left in recliner with call button within reach. A: Pt. performed all activities well with safety and will do well with d/c home. P: Continue per POC to increase strength unless otherwise d/c from facility. Flakita Meier, FINANCIAL COST ANALYST
[2016-05-28 11:03] VITALS: TEMP 98.8
--- NOTE | 2016-05-28 11:04 | DCSUMMARY ---
Hospitalization Summary Hospital Course: Final Discharge Diagnosis: Current Visit Problems Problem Status Priority Diagnosed Code History of esophageal reflux Acute Z87.19 Hypertension Acute I10 Hypokalemia Acute E87.6 Hyponatremia Acute E87.1 Postoperative anemia Acute D64.9 Status post right hip replacement Acute Z96.641 Diagnostic Data, Laboratory Data, and Procedures of Signifigance: Laboratory Results 05/25/16 05/26/16 05/26/16 Range/Units 06:33 08:05 08:23 WBC 12.96 H 9.61 (4.8-10.8) 10^3/uL RBC 2.74 L 2.67 L (4.20-5.40) 10^6/uL Hgb 8.6 L 8.4 L (12.0-16.0) g/dL Hct 26.1 L 25.8 L (37.0-47.0) % MCV 95.3 96.6 (81-99) FL MCH 31.4 H 31.5 H (27-31) PG MCHC 33.0 32.6 L (33-37) g/dL RDW Std Deviation 46.3 48.8 (39-50) fL RDW Coeff of Jonas 13.9 14.4 (11.5-14.5) % Plt Count 327 305 (140-350) 10*3/uL MPV 9.5 10.1 (7.4-12.2) FL Immature Gran % (Auto) (0-5) % Neut % (Auto) (50-80) % Lymph % (Auto) (10-50) % Walsh % (Auto) (5-15) % Eos % (Auto) (0-8) % Baso % (Auto) (0-1) % Immature Gran # (Auto) 10*3/UL Neut # (Auto) 10*3/UL Lymph # (Auto) 10*3/uL Walsh # (Auto) (0.3-0.8) 10*3/UL Eos # (Auto) 10*3/UL Baso # (Auto) 10*3/UL WBC Morphology Comment (NORM) Plt Morphology Comment (NORM) RBC Morph Comment (NORM) Sodium 131 L 131 L (135-145) meq/L Potassium 3.6 L 3.4 L (3.8-5.2) meq/L Chloride 99 96 L (98-112) meq/L Carbon Dioxide 28 27 (23-33) meq/L Anion Gap 4 L 8 (5-20) BUN 11 15 (7-22) mg/dL Creatinine 0.6 0.7 (0.50-1.20) mg/dL Estimated GFR (>60 ml/min/1.73m(2)) BUN/Creatinine Ratio 18.33 21.42 H (6-20) Glucose 113 H 119 H (78-110) mg/dL Calculated Osmolality 271.0 273.0 (267-292) mOsm/kg Calcium 8.2 L 8.1 L (8.7-10.7) mg/dL Magnesium 1.7 (1.6-2.4) mg/dL Total Bilirubin (0.3-1.2) mg/dL AST (8-39) IU/L ALT (9-52) IU/L Alkaline Phosphatase (38-126) IU/L Total Protein (6.1-8.0) g/dL Albumin (3.5-4.8) g/dL Globulin (2.50-4.10) g/dL Albumin/Globulin Ratio (1.3-2.0) mg/g 05/27/16 05/28/16 Range/Units 04:11 04:40 WBC 9.18 9.22 (4.8-10.8) 10^3/uL RBC 2.55 L 2.80 L (4.20-5.40) 10^6/uL Hgb 8.2 L 8.7 L (12.0-16.0) g/dL Hct 24.5 L 27.3 L (37.0-47.0) % MCV 96.1 97.5 (81-99) FL MCH 32.2 H 31.1 H (27-31) PG MCHC 33.5 31.9 L (33-37) g/dL RDW Std Deviation 47.6 48.7 (39-50) fL RDW Coeff of Jonas 14.3 14.4 (11.5-14.5) % Plt Count 313 462 H (140-350) 10*3/uL MPV 10.9 10.6 (7.4-12.2) FL Immature Gran % (Auto) 0.2 (0-5) % Neut % (Auto) 67.0 (50-80) % Lymph % (Auto) 22.3 (10-50) % Walsh % (Auto) 8.0 (5-15) % Eos % (Auto) 2.3 (0-8) % Baso % (Auto) 0.2 (0-1) % Immature Gran # (Auto) 0.02 10*3/UL Neut # (Auto) 6.17 10*3/UL Lymph # (Auto) 2.06 10*3/uL Walsh # (Auto) 0.74 (0.3-0.8) 10*3/UL Eos # (Auto) 0.21 10*3/UL Baso # (Auto) 0.02 10*3/UL WBC Morphology Comment Normal morphology (NORM) Plt Morphology Comment Normal morphology (NORM) RBC Morph Comment Normal morphology (NORM) Sodium 131 L 133 L (135-145) meq/L Potassium 3.7 L 4.2 (3.8-5.2) meq/L Chloride 100 100 (98-112) meq/L Carbon Dioxide 28 26 (23-33) meq/L Anion Gap 3 L 7 (5-20) BUN 13 11 (7-22) mg/dL Creatinine 0.5 0.5 (0.50-1.20) mg/dL Estimated GFR (>60 ml/min/1.73m(2)) BUN/Creatinine Ratio 26.00 H 22.00 H (6-20) Glucose 83 84 (78-110) mg/dL Calculated Osmolality 270.0 273.0 (267-292) mOsm/kg Calcium 7.8 L 8.0 L (8.7-10.7) mg/dL Magnesium 2.3 (1.6-2.4) mg/dL Total Bilirubin 0.6 (0.3-1.2) mg/dL AST 59 H (8-39) IU/L ALT 16 (9-52) IU/L Alkaline Phosphatase 56 (38-126) IU/L Total Protein 6.3 (6.1-8.0) g/dL Albumin 3.2 L (3.5-4.8) g/dL Globulin 3.1 (2.50-4.10) g/dL Albumin/Globulin Ratio 1.00 L (1.3-2.0) mg/g History and Physical pertinent to Admission: Course of Hospitalization: This very nice 81-year-old female past medical history of hypertension and was admitted here for right hip replacement which went very well patient did well postop. She did have some postop anemia but this is improving with the iron replacement. Her blood pressures have been in better here so she is down to half of the dose of the valsartan which is 100 mg instead of 200 mg she also takes Norvasc 2.5 and a beta staci which her primary started before surgery. 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 The hyponatremia is secondary to her hydrochlorothiazide which I stopped and now it is improved. I did give her a prescription for valsartan 100 mg without the HCTZ and it I discussed this with the patient which was in full agreement she will follow-up with Dr. Garcia and do outpatient physical therapy she will be going home today with her family deaths, from [place] On the date of discharge, the patient was examined: Gen.: No acute distress, alert, nontoxic Heart: Regular rate and rhythm, no murmurs, clicks, gallops, or rubs Lungs: Clear to auscultation bilaterally, breathing is nonlabored Abdomen/GI: Normal tones on auscultation, soft, nontender, nondistended Musculoskeletal/extremities: No clubbing, cyanosis, or edema Vitals reviewed and are listed below Vital Signs (24 hrs) Temp Pulse Pulse Resp BP BP Pulse Ox 05/28/16 11:00 98.8 F 75 18 118/43 97 05/28/16 07:16 97.1 F 72 18 114/48 96 05/28/16 05:38 95 05/28/16 04:42 98.6 F 79 16 130/52 94 05/28/16 00:05 97.8 F 76 12 119/49 96 05/27/16 20:37 98.0 F 79 24 109/56 95 05/27/16 19:00 80 05/27/16 17:00 97.5 F 79 20 112/48 94 05/27/16 13:00 97.5 F 73 20 114/39 93 Assessment and Plan: 1. As per discharge assessments above 2. Disposition: Home 3. Condition on discharge, stable and improved. 4. Diet: regular diet 5. Activities: resume normal activities 6. Follow-Up: 1. PCP 2. 7. Medications at the Time of Discharge: Home Medications Medication Instructions Recorded Confirmed Type River[place]-3 Fatty Acids [River[place]-3] 100 mg PO DAILY cap 12/06/11 05/24/16 History Aspirin 975 mg PO PRN PRN 09/30/14 05/24/16 History Omeprazole 1 cap PO QPM PRN #90 cap 11/09/15 05/24/16 Clinic Amlodipine Besylate 1 tab PO QPM #30 tab 05/16/16 05/24/16 Clinic Escitalopram Oxalate 10 mg PO DAILY 05/25/16 05/25/16 History Aspirin EC 325 mg PO BID tab 05/27/16 Rx HYDROcodone/APAP 10/325 Tab 1 tab PO Q6H PRN #40 tab 05/27/16 Rx [[place]illiard 10/325 Tab] Ferrous Gluconate 325 mg PO DAILY #20 tablet 05/28/16 Rx Losartan [Cozaar] 100 mg PO DAILY #30 tab 05/28/16 Rx 8. Time, care, counseling and coordination of care for this discharge is greater than 30 minutes. Exam - Vitals Vital Signs: Vital Signs Temperature 97.1 F Temperature Source Temporal Artery Scan Pulse Rate [Apical] 80 Pulse Rate [Pulse Oximeter] 72 Pulse Rate 70 Respiratory Rate 18 Blood Pressure [Left Arm] 114/48 Blood Pressure [Right Arm] 109/56 Blood Pressure 135/56 Pulse Ox 96 Oxygen Flow Rate 2 Oxygen Flow Rate 3 Oxygen Delivery Method Room Air Height 5 ft 1 in Weight 67.495 kg Patient Problems - Patient Problem List (1) Status post right hip replacement Current Visit: Yes Status: Acute (2) Postoperative anemia Current Visit: Yes Status: Acute (3) Hypertension Current Visit: Yes Status: Acute (4) Hypokalemia Current Visit: Yes Status: Acute (5) Hyponatremia Current Visit: Yes Status: Acute
--- NOTE | 2016-05-30 10:41 | OTI REPORT ---
Thank you for the referral of Shruthi Dyer. She was seen on 05/25/16 for an occupational therapy inpatient evaluation secondary to an anterior right total hip arthroplasty. SUBJECTIVE: The patient is a 81-year-old female who had a total hip arthroplasty. The patient lives at home and was independent with all activities of daily living, functional transfers, and driving. PAST MEDICAL HISTORY: Past medical history can be found in the patient's medical record. OBJECTIVE FINDINGS: Bed mobility: The patient was able to complete bed mobility with stand by assist. Standing: The patient was able to complete standing activity with stand by assist while completing hygiene activities. Activities of daily living: The patient was able to don and doff socks and don pants with stand by assist. Range of motion: The patient's upper extremity range of motion is within normal limits. Strength: Upper extremity strength is within normal limits for activities of daily living. ASSESSMENT: The patient did well during the evaluation today. She does not need any further occupational therapy at this time. She has all adaptive equipment needed for home for her bathroom. She is independent with all activities of daily living without adaptive equipment. TREATMENT PLAN: Patient will be discharged from occupational therapy services at this time. INITIAL TREATMENT: Treatment today consisted of the inpatient evaluation activities only. [place]
== END 2016-05-28 12:15 | disposition home or self-care (01) | DRG 470 ==
LOC: OPS 05:59 → MED/SURG 12:46
PROVIDERS: ADMIT Orthopaedic Surgery; ATTEND Orthopaedic Surgery
PROC: 0SR9049 Replacement of Right Hip Joint with Ceramic on Polyethylene Synthetic Substitute, Cemented, Open Approach (ICD-10-PCS; principal; 2016-05-24 08:00)
DX: M16.11 Unilateral primary osteoarthritis, right hip (principal); E87.1 Hypo-osmolality and hyponatremia; D64.9 Anemia, unspecified; I10 Essential (primary) hypertension; E87.6 Hypokalemia
CPT/HCPCS: 36415; 73502; 76001; 80048; 80053; 83735; 85025; 85027; 94150; 94761; 97010; 97110; 97116; 97161; 97166; 97530; A4216; J0690; J1100; J1580; J1644; J1885; J2250; J2270; J3475; J3490; J7030; J7040; J7050; J7120; Q0163; S0020

== ENCOUNTER → 2016-06-06 | Outpatient (CLI) | payer BC, OTHER ==
--- NOTE | 2016-06-06 15:24 | DI ---
XR HIP COMPLETE MIN 2VW U/L,06/06/2016 11:17 AM: Clinical History: History of right total hip replacement. Previous Exam: May 24, 2016 Findings: 3 views of the right hip are obtained, and demonstrate postsurgical changes consistent with a right t otal hip arthroplasty. Diffuse osteopenia is noted. Diffuse degenerative changes of the lumbar spine are seen. There is vacu um disc phenomenon at the L2/3 level. There are stable displaced fractures of the left superior and inferior pubic rami. Impression: 1. No significant change from the prior exam.
== END ==
LOC: ORTHO 11:30
PROVIDERS: ATTEND Orthopaedic Surgery
DX: Z47.1 Aftercare following joint replacement surgery (principal); Z96.641 Presence of right artificial hip joint
CPT/HCPCS: 73502

== ENCOUNTER → 2016-08-18 | Outpatient (CLI) | payer BC ==
--- NOTE | 2016-08-18 21:44 | DI ---
AP PELVIS and RIGHT HIP, 08/18/2016 10:13 AM: Clinical History: History of right total hip replacement for osteoarthritis. Previous Exam: 06/06/2016. There is no soft tissue abnormality. 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 There is osteoporosis. 2 views of the right hip show the patient to be status po st total right hip replacement. The prosthetic device articulates normally. There is no evidence of l oosening of the prosthesis. Readin. Status post total right hip replacement with no evidence of loosening of the prosthesis. 2. 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 There is osteopor osis.
== END ==
LOC: ORTHO 11:33
PROVIDERS: ATTEND Orthopaedic Surgery
DX: S32.512K Fracture of superior rim of left pubis, subsequent encounter for fracture with nonunion (principal); Z96.641 Presence of right artificial hip joint; Z98.890 Other specified postprocedural states
CPT/HCPCS: 73502